=== PATIENT | male | born 1990 | race Caucasian/White ===

== ENCOUNTER 2017-07-07 17:00 | Emergency (ER) | payer OTHER ==
--- NOTE | 2017-07-07 17:57 | EDPHY ---
H & P Time Seen by Provider: 07/07/17 17:20 HPI/ROS: CHIEF COMPLAINT: Laceration History by patient HISTORY OF PRESENT ILLNESS: 26-year-old man presents complaining of small laceration to left hand when he was trying to open a glass jar which broke. He does not think there is any foreign bodies in the wound but it is painful. Bleeding is now controlled. Patient's tetanus is up-to-date. He denies any other pain or injury. REVIEW OF SYSTEMS: As in HPI, and all other systems reviewed and are negative Smoking Status: Former smoker Physical Exam: General Appearance: Alert and no distress. Head: Normocephalic, atraumatic Eyes: Pupils equal and round no injection. Extraocular movements are intact. Musculoskeletal: Neck is supple and nontender. Extremities: Left hand with less than 1 cm superficial laceration in the webspace with tenderness, no foreign bodies palpated. Distal cap refill less than 2 sec, distal sensation intact.. Skin: No rashes or lesions except as described above. Constitutional: Initial Vital Signs Temperature (C) 36.7 C 07/07/17 17:04 Heart Rate 58 L 07/07/17 17:04 Respiratory Rate 16 07/07/17 17:04 Blood Pressure 125/97 H 07/07/17 17:04 O2 Sat (%) 95 07/07/17 17:04 O2 Delivery Mode Room Air Allergies/Adverse Reactions: No Known Allergies Allergy (Verified 07/07/17 17:08) Home Medications: Medication Instructions Recorded NK [No Known Home Meds] 07/07/17 MDM/Departure - [facility] ED Course/Re-evaluation: 26-year-old man presents with laceration due to broken glass jar his left hand. X-ray shows no evidence of foreign body. Wound was small and superficial closed with Steri-Strips without complication. Patient is discharged home in stable condition. - Depart Disposition: Home, Routine, Self-Care Clinical Impression: Superficial laceration of left hand Condition: Good Instructions: Laceration (DC), Steristrips (ED) Additional Instructions: You were seen by Dr. Evangelina Rendon today. Keep your dressing on for the next 24 hr. After that you may remove it and wash the wound regularly with soap and water, cover it with ointment such as Aquaphor and a bandage until the Steri-Strips fall off. Do not submerge the wound such as in a swimming pool. Watch for signs and symptoms of infection including but not limited to pus from the wound, increased pain or redness, unexplained fever. Return for any worsening or new concerns. Referrals: NONE *PRIMARY CARE P,. [Primary Care Provider] - As per Instructions
[2017-07-07 18:06] VITALS: BP 118/88
== END 2017-07-07 18:05 | disposition home or self-care (01) ==
LOC: CED 17:00 → MERGE 17:00 → CED 18:05
DX: S61.412A Laceration without foreign body of left hand, initial encounter (principal); Z87.891 Personal history of nicotine dependence; W25.XXXA Contact with sharp glass, initial encounter
CPT/HCPCS: 73130-PO